=== PATIENT | male | born 1995 | race Caucasian/White ===

== ENCOUNTER 2016-09-25 19:23 | Emergency (ER) | payer SELFPAY ==
[2016-09-25 19:36] VITALS: TEMP 97.6; BMI 24.4
[2016-09-25 19:54] LABS: AUTOMATED BASOPHIL 0.6 % (0-2); AUTOMATED EOSINOPHIL 3.9 % (0-5); AUTOMATED LYMPH 20.9 % (17-44); AUTOMATED MONOCYTE 5.4 % (3-10); AUTOMATED NEUTROPHIL 69.2 % (45-76); MPV 7.1 fL (7.4-10.4)
[2016-09-25 20:03] LABS: BLOOD UREA NITROGEN 26 MG/DL (9-20); CALCIUM 8.6 MG/DL (8.4-10.2); CALCULATED OSMOLALITY 282 MOs/Kg (270-290); CHLORIDE 106 mEq/L (98-107); ETOH-MGDL < 10 mg/dL; GLUCOSE 97 MG/DL (70-99); SODIUM LEVEL 144 mEq/L (137-146); TOTAL PROTEIN 7.4 G/DL (6.3-8.2)
[2016-09-25] MEDS ORDERED: ONDANSETRON HCL 4 MG/2 ML VIAL IV ONE (20:03)
[2016-09-25] MEDS ORDERED: NALOXONE 0.4 MG/ML AMPULE IV ONE (20:03)
[2016-09-25] MEDS: NS 1,000 ML IV SCH ×2 (20:12→22:30)
--- NOTE | 2016-09-25 21:12 | EDPRACDOC ---
- General Information Chief Complaint: Overdose Stated Complaint: OVERDOSE Time Seen by Provider: 09/25/16 19:39 Information Source: Patient Mode of Arrival: Ambulance Home Medications: Home Medications Cephalexin Monohydrate [Keflex] 500 mg PO .QID X 7DAYS 09/25/16 Ibuprofen 800 mg PO TID 09/25/16 Naloxone [Narcan] 0.4 mg IM DAILY #1 a 09/25/16 Nystatin [Mycostatin] 1 applic TOP BID 09/25/16 Oxycodone HCl/Acetaminophen [Percocet 5-325 mg Tablet] 1 tab PO Q6-8H PRN Phenazopyridine HCl 200 mg PO DAILY 09/25/16 Promethazine HCl 25 mg PO Q8H PRN 09/25/16 Allergies/Adverse Reactions: Allergies Allergy/AdvReac Type Severity Reaction Status Date / Time ibuprofen Allergy Hives* Verified 02/24/16 14:49 tramadol Allergy Hives* Verified 02/24/16 14:49 - History of Present Illness Onset: 1 day HPI: PT PRESENTS TODAY VIA EMS FOR HEROIN OVERDOSE. PT WAS FOUND UNCONSCIOUS BY FAMILY WHO CALLED 911. PT WAS ABLE TO BE WAKEN BY [facility]ONG. PT STATES THAT HE IS "TOO HIGH" AND IS REQUESTING NARCAN FROM ME. NO APPARENT DISTRESS. NO OTHER COMPLAINTS. ALSO STATES THAT HE USES METHAMPHETAMINE, BUT NONE RECENTLY. Reason for Seeking Treatment: 911 Call Presents With: Reports: None Expresses: Reports: None Medication Compliance: N/A - Treatment Prior to ED Arrival Reported Medications/Treatment TOURIST GUIDE Meds/Treatments Given O2 via Cannula EMS Treatment ALS IV Yes ED Past Medical History - History Reviewed Yes Nurses notes reviewed and agree except as marked - Patient Medical History GI/ History: Reports: Gastroesophageal Reflux Psychological History: Denies: Depression - Social Medical History Smoking Status: Heavy tobacco smoker (5 or more cigarettes/day or daily pipe/ cigar) Social History: Reports: Heroin Use (IN THE PAST) EDM Review of Systems - Review of Systems ROS Negative Except as Marked: Yes All systems reviewed and were negative except as marked Constitutional: Fatigue Respiratory: No Symptoms Reported Cardiovascular: No Symptoms Reported Gastrointestinal: No Symptoms Reported Neurological: No Symptoms Reported Musculoskeletal: No Symptoms Reported Integumentary: No Symptoms Reported Psychiatric: No Symptoms Reported - Physical Exam Constitutional: Alert (Awake), No apparent distress Oriented to: Time, Person, Place Last recorded Vital Signs: Last Vital Signs Temp 97.6 F 09/25/16 19:32 Pulse 105 09/25/16 20:11 Resp 14 09/25/16 20:11 BP 114/62 09/25/16 20:11 Pulse Ox 96 09/25/16 20:11 Oxygen Pulse Oxygen Saturation 96 O2 Device Nasal Cannula Oxygen Flow Rate 2 Fraction of Inspired Oxygen ( FIO2) - HEENT Head: Normal Eye Exam: Normal Neck: Normal, Denies Pain, Midline - Respiratory/Cardiovascular Respiratory: Normal - CTA Cardiovascular: Normal - GI Palpation: Normal Tenderness: Non tender - Musculoskeletal Back: Normal Extremities: Normal - Integumentary Skin: Normal Lymphatics: Normal - Neurologic Cerebellar: Normal Mood Description: Normal Thought: Coherent Perception: Normal - Re-evaluation Re-evaluation 1 Re-evaluation Time: 22:28 PT STATES THAT HE FEELS MUCH BETTER. PT HAS BEEN MONITORED HERE NOW FOR OVER 3 HOURS AND IS OK FOR HOME. CASE DISCUSSED WITH DR. SHEEHAN. - Results 09/25/16 19:45 09/25/16 19:45 WBC 6.3 xk/uL (3.8-10.8) 09/25/16 19:45 RBC 5.01 xM/uL (4.70-6.10) 09/25/16 19:45 Hgb 13.8 g/dL (14.0-18.0) L 09/25/16 19:45 Hct 40.3 % (42-52) L 09/25/16 19:45 MCV 81 fL (80-94) 09/25/16 19:45 MCH 27.5 pg (27-32) 09/25/16 19:45 MCHC 34.1 g/dl (33-36) 09/25/16 19:45 RDW 14.7 % (11.5-14.5) H 09/25/16 19:45 Plt Count 242 xk/uL (130-400) 09/25/16 19:45 MPV 7.1 fL (7.4-10.4) L 09/25/16 19:45 Neut % (Auto) 69.2 % (45-76) 09/25/16 19:45 Lymph % (Auto) 20.9 % (17-44) 09/25/16 19:45 [place] % (Auto) 5.4 % (3-10) 09/25/16 19:45 Eos % (Auto) 3.9 % (0-5) 09/25/16 19:45 Baso % (Auto) 0.6 % (0-2) 09/25/16 19:45 Absolute Neuts (auto) 4.35 xk/uL (1.7-8.2) 09/25/16 19:45 Absolute Lymphs (auto) 1.26 xk/uL (0.65-4.75) 09/25/16 19:45 Sodium 144 mEq/L (137-146) 09/25/16 19:45 Potassium 4.2 mEq/L (3.5-5.1) 09/25/16 19:45 Chloride 106 mEq/L (98-107) 09/25/16 19:45 Carbon Dioxide 26 mMOL/L (22-33) 09/25/16 19:45 Anion Gap 16 mEq/L (8-16) 09/25/16 19:45 BUN 26 MG/DL (9-20) H 09/25/16 19:45 Creatinine 0.90 MG/DL (0.66-1.25) 09/25/16 19:45 Estimated GFR (MDRD) > 60 mL/min (>=60) 09/25/16 19:45 Glucose 97 MG/DL (70-99) 09/25/16 19:45 Calculated Osmolality 282 MOs/Kg (270-290) 09/25/16 19:45 Calcium 8.6 MG/DL (8.4-10.2) 09/25/16 19:45 Total Bilirubin 0.4 MG/DL (0.2-1.3) 09/25/16 19:45 AST 37 IU/L (17-59) 09/25/16 19:45 ALT 53 IU/L (21-72) 09/25/16 19:45 Alkaline Phosphatase 61 IU/L (38-126) 09/25/16 19:45 Total Protein 7.4 G/DL (6.3-8.2) 09/25/16 19:45 Albumin 4.0 G/DL (3.5-5.0) 09/25/16 19:45 Plasma/Serum Ethyl Alc % (<0.01) 09/25/16 19:45 Lab Results 09/25/16 09/25/16 19:45 19:45 WBC 6.3 RBC 5.01 Hgb 13.8 L Hct 40.3 L MCV 81 MCH 27.5 MCHC 34.1 RDW 14.7 H Plt Count 242 MPV 7.1 L Neut % (Auto) 69.2 Lymph % (Auto) 20.9 [place] % (Auto) 5.4 Eos % (Auto) 3.9 Baso % (Auto) 0.6 Absolute Neuts (auto) 4.35 Absolute Lymphs (auto) 1.26 Sodium 144 Potassium 4.2 Chloride 106 Carbon Dioxide 26 Anion Gap 16 BUN 26 H Creatinine 0.90 Estimated GFR (MDRD) > 60 Glucose 97 Calculated Osmolality 282 Calcium 8.6 Total Bilirubin 0.4 AST 37 ALT 53 Alkaline Phosphatase 61 Total Protein 7.4 Albumin 4.0 Plasma/Serum Ethyl Alc - EKG EKG #1 EKG Time: 19:34 -: Yes EKG interpreted by me Rate: bpm: 91 [place]: Normal Rhythm: NSR Block: None Hypertrophy: None ST: Normal - Additional Information Additional Information: CASE DISCUSSED WITH DR. SHEEHAN. OK FOR HOME. Decision Time to Discharge: 22:29 - Departure Disposition: Home Condition: Improved Final Diagnosis: Heroin abuse Instructions: Accidental Overdose, Adult Overdose Education/Counseling Given To: Patient, Family Member Education/Counseling Given Regarding: Diagnosis, Treatment, Follow Up Referrals: None,No Provider [Primary Care Provider] - One Week Prescriptions: New Naloxone [Narcan] 0.4 mg IM DAILY #1 a No Action Promethazine HCl 25 mg PO Q8H PRN PRN Reason: Nausea/Vomiting Oxycodone HCl/Acetaminophen [Percocet 5-325 mg Tablet] 1 tab PO Q6-8H PRN PRN Reason: Pain Ibuprofen 800 mg PO TID Cephalexin Monohydrate [Keflex] 500 mg PO .QID X 7DAYS Phenazopyridine HCl 200 mg PO DAILY Nystatin [Mycostatin] 1 applic TOP BID Additional Instructions: STOP ABUSING DRUGS
[2016-09-25 22:29] VITALS: PULSE 92
[2016-09-25 23:07] VITALS: BP 115/78
== END 2016-09-25 23:00 | disposition home or self-care (01) ==
LOC: ED 19:23
DX: F11.10 Opioid abuse, uncomplicated (principal)
CPT/HCPCS: 36415; 80053; 80307; 85025; 86592; 93005; 96361; 96374; 96375; 99284; J2310; J2405